=== PATIENT | male | born 1960 | race Caucasian/White ===

== ENCOUNTER 2020-08-30 10:34 | Observation (INO) | payer BC ==
[~2020-08-30] VITALS: Ht 177.8 cm; Wt 72.3 kg
[2020-08-30 11:46] LABS: BASOPHILS # (AUTO) 0.1 X10'3 (0-0.2); BASOPHILS % (AUTO) 0.9 % (0-1); EOSINOPHILS # (AUTO) 0.1 X10'3 (0-0.9); EOSINOPHILS % (AUTO) 1.3 % (0-6); HEMATOCRIT 50.2 % (42.0-52.0); HEMOGLOBIN 17.6 g/dl (14.0-17.9); LYMPHOCYTES # (AUTO) 1.6 X10'3 (1.1-4.8); LYMPHOCYTES % (AUTO) 15.8 % (21-51); MEAN CORPUSCULAR VOLUME 94.1 FL (78-98); MEAN PLATELET VOLUME 8.5 FL (7.4-10.4); MONOCYTES # (AUTO) 0.6 X10'3 (0-0.9); MONOCYTES % (AUTO) 5.7 % (2-12); NEUTROPHILS # (AUTO) 7.8 X10'3 (1.8-7.7); NEUTROPHILS % (AUTO) 76.3 % (42-75); PLATELET COUNT 212 X10'3 (140-440); RED BLOOD COUNT 5.33 X10'6 (4.70-6.10); RED CELL DISTRIBUTION WIDTH 13.5 % (11.5-14.5); WHITE BLOOD COUNT 10.2 X10'3 (4.5-11.0)
[2020-08-30 12:01] LABS: ALANINE AMINOTRANSFERASE 29 U/L (12-78); ALBUMIN 4.1 G/DL (3.4-5.0); ALBUMIN/GLOBULIN RATIO 1.1 (1.1-1.5); ALKALINE PHOSPHATASE 84 IU/L (46-116); ANION GAP 8 (8-16); ASPARTATE AMINO TRANSFERASE 23 U/L (10-37); BILIRUBIN,TOTAL 0.7 MG/DL (0.1-1.0); BLOOD UREA NITROGEN 18 MG/DL (7-18); BUN/CREATININE RATIO 23.4 (5.4-32.0); CALCIUM 9.6 MG/DL (8.5-10.1); CHLORIDE 106 MMOL/L (99-107); CREATININE 0.77 MG/DL (0.60-1.10); GLUCOSE 100 MG/DL (70-104); SODIUM 137 MMOL/L (135-145); TOTAL CARBON DIOXIDE 22.7 MMOL/L (24-32); TOTAL PROTEIN 7.8 G/DL (6.4-8.2); eGFR > 90 ML/MIN
[2020-08-30] MEDS ORDERED: aspirin 81mg tab.chew PO ONE (12:05)
[2020-08-30 13:02] LABS: D-DIMER 0.37 MG/L FEU (0-0.50)
[2020-08-30] MEDS ORDERED: ketorolac tromethamine 15mg/ml inj. IM ONE (13:55)
[2020-08-30] MEDS ORDERED: potassium Cl 40MEQ/1/2NS 520ml 520 ML IV PRN ×2 (15:20)
[2020-08-30] MEDS ORDERED: mag hydrox/Alum hydrox/simeth 30ml oral suspension PO PRN (15:20)
[2020-08-30] MEDS ORDERED: regadenoson 0.4mg/5ml syringe IV ONE (15:20)
[2020-08-30] MEDS ORDERED: magnesium Cl slow-release 64mg tablet PO PRN (15:20)
[2020-08-30] MEDS ORDERED: potassium Cl 20 mEq SR tablet PO PRN ×2 (15:20)
[2020-08-30] MEDS ORDERED: nitroGLYCERIN 0.4mg SUBLingual tab SL PRN ×2 (15:20)
[2020-08-30] MEDS ORDERED: normal saline 1000ml 1,000 ML IV SCH (15:20)
[2020-08-30] MEDS ORDERED: acetaminophen 325mg tablet PO PRN ×2 (15:20)
[2020-08-30] MEDS ORDERED: metoclopramide 5 mg/ml inj IV PRN (15:20)
[2020-08-30] MEDS ORDERED: metoprolol tartrate 1mg/ml inj IV PRN (15:20)
[2020-08-30] MEDS ORDERED: magnesium hydroxide 30ml (MOM) UD suspension PO PRN (15:20)
[2020-08-30] MEDS ORDERED: aminophylline 250mg/10ml inj. IV PRN (15:20)
[2020-08-30] MEDS ORDERED: magnesium 4gm in 100ml NS 100 ML IV PRN (15:20)
[2020-08-30] MEDS ORDERED: magnesium 2GM in 50ml NS 50 ML IV PRN (15:20)
[2020-08-30] MEDS ORDERED: ondansetron/PF 4mg/2ml inj IV PRN (15:20)
[2020-08-30] MEDS ORDERED: NO HOME MEDS (15:24)
[2020-08-30 15:42] LABS: URINE AMPHETAMINE SCREEN NEGATIVE (Neg); URINE BARBITUATE SCREEN NEGATIVE (Neg); URINE BENZODIAZEPINES SCREEN NEGATIVE (Neg); URINE CANNABINOID SCREEN NEGATIVE (Neg); URINE COCAINE SCREEN NEGATIVE (Neg); URINE METHADONE SCREEN NEGATIVE (Neg); URINE OPIATE SCREEN NEGATIVE (Neg); URINE PHENCYCLIDINE SCREEN NEGATIVE (Neg)
--- NOTE | 2020-08-30 16:14 | NUR ---
received report from human services instructordori alvarez
--- NOTE | 2020-08-30 16:48 | NUR ---
received pt into room 317,oriented to surroundings,pt c/o chest pain,non radiating,11/08,moniter shows NSR, v/s stable, @ bedside
[2020-08-30 16:51] VITALS: BP 119/87
[2020-08-30] MEDS ORDERED: nicotine 14mg patch - 24hr TD SCH (17:00)
--- NOTE | 2020-08-30 17:30 | NUR ---
pt refuses nitro for chest pain
--- NOTE | 2020-08-30 18:00 | NUR ---
Patient in room MED 317. I have received report from Eunice VENEGAS. and had the opportunity to ask questions and assume patient care. Pt resting in bed. Echo in process. NAD noted, RR even and unlabored. Pt voiced no concern. Safety precautions in place. Will continue to monitor.
--- NOTE | 2020-08-30 18:15 | NUR ---
Problems reprioritized. Patient report given, questions answered & plan of care reviewed with dori dewitt.
[2020-08-30] MEDS ORDERED: K and/or MAG REPLACEMENT MC SCH (20:00)
[2020-08-30] MEDS ORDERED: temazepam 15mg capsule PO PRN (21:00)
[2020-08-30 22:00] VITALS: BP 102/70
[2020-08-31] VITALS (10 sets, daily range): BP systolic 95–123; BP diastolic 59–81
[2020-08-31 07:30] LABS: HEMATOCRIT 46.8 % (42.0-52.0); HEMOGLOBIN 16.1 g/dl (14.0-17.9); MEAN CORPUSCULAR HEMOGLOBIN 32.8 PG (27.0-31.0); MEAN CORPUSCULAR HGB CONC 34.3 g/dL (33.0-36.5); MEAN CORPUSCULAR VOLUME 95.5 FL (78-98); MEAN PLATELET VOLUME 8.8 FL (7.4-10.4); PLATELET COUNT 195 X10'3 (140-440); RED BLOOD COUNT 4.91 X10'6 (4.70-6.10); RED CELL DISTRIBUTION WIDTH 13.4 % (11.5-14.5); WHITE BLOOD COUNT 5.7 X10'3 (4.5-11.0)
[2020-08-31] MEDS ORDERED: enoxaparin 40mg/0.4ml syringe SUBCUT SCH (08:00)
[2020-08-31] MEDS ORDERED: aspirin 81mg tablet.DR PO SCH (08:00)
[2020-08-31 08:21] LABS: ALBUMIN 3.4 G/DL (3.4-5.0); ANION GAP 9 (8-16); BLOOD UREA NITROGEN 23 MG/DL (7-18); BUN/CREATININE RATIO 29.1 (5.4-32.0); CHLORIDE 107 MMOL/L (99-107); CHOL/HDL RATIO 2.4 (0.00-4.99); CHOLESTEROL 155 MG/DL (0-200); CREATININE 0.79 MG/DL (0.60-1.10); GLUCOSE 123 MG/DL (70-104); HDL CHOLESTEROL 65 MG/DL (35-60); LDL CHOLESTEROL 80 MG/DL (50-100); MAGNESIUM 2.3 MG/DL (1.5-2.4); POTASSIUM 4.1 MMOL/L (3.5-5.1); SODIUM 140 MMOL/L (135-145); TOTAL CARBON DIOXIDE 24.4 MMOL/L (24-32); TRIGLYCERIDES 43 MG/DL (20-135); eGFR > 90 ML/MIN
[2020-08-31] MEDS ORDERED: iohexol 300mg/ml 100ml inj. ONE (10:28)
--- NOTE | 2020-08-31 14:31 | NUR ---
Paged Dr. Archer regarding CT results and clarification for admit orders if patient is not going to stay another night. PAGER ID: [phone] MESSAGE: [phone]. Rigo Barron. CT results available. If patient is staying another night, admit orders need to be changed to inpatient. Thank you. Cecile giles [phone]
[2020-08-31] MEDS ORDERED: NICO-631 TD (14:56)
--- NOTE | 2020-08-31 15:45 | NUR ---
Dr. Archer at bedside,CT results reviewed, discharge instructions reviewed with pt and ,prescription confirmed at [facility] [place] dc'd from [facility],site clear pt dc'd via wheelchair with all belongings
--- NOTE | 2020-09-01 11:19 | NUR ---
CASE MANAGEMENT DISCHARGE FOLLOW UP: T/c to pt, no answer, left message requesting callback.
== END 2020-08-31 15:38 | disposition home or self-care (01) ==
LOC: ER 10:34 → ED HOLD 15:17 → MED 3N 16:34
PROVIDERS: ADMIT Family Medicine; ATTEND Family Medicine
DX: R07.89 Other chest pain (principal); R42 Dizziness and giddiness; B19.20 Unspecified viral hepatitis C without hepatic coma; F17.200 Nicotine dependence, unspecified, uncomplicated; Z86.16 Personal history of COVID-19; Z88.5 Allergy status to narcotic agent; Z88.8 Allergy status to other drugs, medicaments and biological substances
CPT/HCPCS: 36415; 71045; 71260; 78452; 80048; 80053; 80061; 80305; 83735; 83880; 84484; 85025; 85027; 85379; 87081; 93005; 93017; 93306; 96360; 96361; 96372; 99285; A9500; G0378; J1885; J7030; Q9967

== ENCOUNTER 2021-01-05 10:44 | Emergency (ER) | payer BC ==
[~2021-01-05] VITALS: Ht 177.8 cm; Wt 77.3 kg
[~2021-01-05 10:44] MED LIST: NICO-631 TD
[2021-01-05 13:30] VITALS: BP 133/96
[2021-01-05] MEDS ORDERED: dexamethasone sod phosphate 10mg/ml inj IV STA (13:42)
[2021-01-05] MEDS ORDERED: normal saline 1000ML IV soln IVB ONE (13:45)
[2021-01-05] MEDS ORDERED: ondansetron/PF 4mg/2ml inj IV ONE (13:45)
[2021-01-05] MEDS ORDERED: ketorolac trometh. 30mg/ml inj. IV ONE (13:45)
== END 2021-01-05 14:45 | disposition home or self-care (01) ==
LOC: ER 10:44
DX: R51.9 Headache, unspecified (principal); R11.0 Nausea; I10 Essential (primary) hypertension; Z88.6 Allergy status to analgesic agent; Z88.8 Allergy status to other drugs, medicaments and biological substances; Z79.899 Other long term (current) drug therapy
CPT/HCPCS: 70450; 96374; 96375; 99284; J1100; J1885; J2405; J7030

== ENCOUNTER 2021-03-27 12:34 | Emergency (ER) | payer BC ==
[~2021-03-27] VITALS: Ht 177.8 cm; Wt 75.0 kg
[2021-03-27 12:37] VITALS: BP 129/93
[2021-03-27] MEDS ORDERED: normal saline 1000ml 1,000 ML IV ONE (12:40)
--- NOTE | 2021-03-27 16:51 | NUR ---
CALLED [employer], WILL BE IN SHORTLY.
[2021-03-27] MEDS ORDERED: HYDROcodone/acetaminophen 10/325mg tab PO ONE (16:55)
[2021-03-27] MEDS ORDERED: HYDR-3965 PO (17:30)
[2021-03-27] MEDS ORDERED: ONDA4TAB12 PO (17:30)
== END 2021-03-27 17:55 | disposition home or self-care (01) ==
LOC: ER 12:35
DX: S92.002A Unspecified fracture of left calcaneus, initial encounter for closed fracture (principal); S32.010A Wedge compression fracture of first lumbar vertebra, initial encounter for closed fracture; I10 Essential (primary) hypertension; Z88.8 Allergy status to other drugs, medicaments and biological substances; Z79.899 Other long term (current) drug therapy; W19.XXXA Unspecified fall, initial encounter; Y93.89 Activity, other specified; Y92.89 Other specified places as the place of occurrence of the external cause; Y99.8 Other external cause status
CPT/HCPCS: 29515; 72100; 72170; 72220; 73610; 73630; 73700; 99284

== ENCOUNTER 2022-01-09 14:04 | Emergency (ER) | payer MEDICAID ==
[~2022-01-09] VITALS: Ht 177.8 cm; Wt 81.8 kg
[~2022-01-09 14:04] MED LIST changes: +ONDA4TAB12 PO
[2022-01-09 14:14] VITALS: BP 149/94
[2022-01-09] MEDS ORDERED: LIDOcaine 1% W/epiNEPHrine 1:100,000 20ml vial IJ ONE (16:05)
[2022-01-09] MEDS ORDERED: TETanus/Pertussis (Acell)/Diphther VAC/PF (Tdap-Adult) 0.5ml syringe IMVAC ONE (16:05)
[2022-01-09] MEDS ORDERED: bacitracin 15gm ointment TP ONE (16:05)
[2022-01-09] MEDS ORDERED: ceFAZolin 1gm IM kit IM ONE (16:20)
[2022-01-09] MEDS ORDERED: ONDA4TAB12 PO (17:03)
[2022-01-09] MEDS ORDERED: HYDR-3965 PO (17:03)
[2022-01-09] MEDS ORDERED: CEPH250T PO (17:32)
== END 2022-01-09 18:31 | disposition home or self-care (01) ==
LOC: ER 14:05
DX: S62.502B Fracture of unspecified phalanx of left thumb, initial encounter for open fracture (principal); I10 Essential (primary) hypertension; F17.200 Nicotine dependence, unspecified, uncomplicated; Z88.5 Allergy status to narcotic agent; Z88.6 Allergy status to analgesic agent; W31.2XXA Contact with powered woodworking and forming machines, initial encounter; Y93.89 Activity, other specified; Y92.89 Other specified places as the place of occurrence of the external cause; Y99.8 Other external cause status
CPT/HCPCS: 12002; 73140; 90471; 90715; 96372; 99284; J0690; J7030; 99283; A6222; A6449